=== PATIENT | male | born 1945 | race African-American/Black ===

== ENCOUNTER → 2016-12-28 | Outpatient (CLI) | payer MEDICARE, OTHER ==
[~2016-12-28] VITALS: Ht 180.3 cm; Wt 124.3 kg
[~2016-12-28] MED LIST: ACTOS45 MG PO; AMLODIPINE BESY10 MG; AMLODIPINE BESY10 MG ORAL; ASPIR 8181 MG ORAL; ASPIRIN EC325 MG; BENAZEPRIL HCL40 MG; CATAPRES0.1 MG ORAL; CRESTOR10 M2 ORAL; DOCUSATE SODIU100 MG; ELIQUIS5 MG PO; FREESTYLE LITE1 EACH; FUROSEMIDE20 M1; FUROSEMIDE40 MG ORAL; GLYBURIDE5 MG; HYDROCODON-ACE1 EA15; JANUVIA100 MG ORAL; LANCETS THIN1 EACH; LEXAPRO10 MG ORAL; LOSARTAN POTASS25 MG ORAL; METFORMIN HCL1000 M1; METFORMIN HCL500 M1 ORAL; METOPROLOL TART50 MG; OMEPRAZOLE20 M2 ORAL; PACERONE200 MG ORAL; PIOGLITAZONE; SIMVASTATIN40 MG; TRAMADOL HCL50 MG; UNOBMED; ZOLPIDEM TARTRA10 MG
[2016-12-28 16:07] VITALS: BP 154/58
--- NOTE | 2016-12-28 16:33 | GI Initial Consult Note ---
History of Present Illness General Date patient seen: Dec 28, 2016 Time patient seen: 16:23 Referring physician: Glendy MOORE / GABRIELLE ROWAN Reason for Consultation: CONSTIPATION Present Illness HPI 71 year old male patient referred by Dr. Moore for evaluation of severe constipation and rectal dysfunction. Denies any weight loss. No changes in dietary habits. Last EGD/colonoscopy in 2012, see report below. DATE OF PROCEDURE: 03/20/2013 SURGEON: OTONIEL NASSAR MD PRE-ENDOSCOPY DIAGNOSIS: Anemia. POST-ENDOSCOPY DIAGNOSES: 1. Large gastric ulcer as described below. 2. Normal colonoscopy. Home Meds Reported Medications Amlodipine Besylate* (AMLODIPINE BESYLATE*) 10 Mg Tablet, 10 MG ORAL DAILY, TAB 12/28/16 Clonidine Hcl* (CATAPRES*) 0.1 Mg Tablet, 0.1 MG ORAL Q4HR, TAB 12/28/16 Amiodarone Hcl* (PACERONE*) 200 Mg Tablet, 200 MG ORAL EVERY 12 HOURS, TAB 12/28/16 Apixaban (ELIQUIS) 5 Mg Tablet, 5 MG PO DAILY, TAB 12/28/16 Escitalopram Oxalate* (LEXAPRO*) 10 Mg Tablet, 10 MG ORAL DAILY, TAB 12/28/16 Rosuvastatin Calcium* (CRESTOR*) 10 Mg Tablet, 10 MG ORAL DAILY, TAB 12/28/16 Sitagliptin (Januvia) 100 Mg Tablet, 100 MG ORAL DAILY, TAB 12/28/16 Omeprazole (OMEPRAZOLE) 20 Mg Capsule.dr, 20 MG ORAL DAILY, CAP 12/28/16 Losartan Potassium* (LOSARTAN POTASSIUM*) 25 Mg Tablet, 25 MG ORAL DAILY, TAB 12/28/16 Metformin Hcl* (METFORMIN HCL*) 500 Mg Tablet, 500 MG ORAL TWICE A DAY, TAB 12/28/16 Furosemide* (LASIX*) 40 Mg Tablet, 40 MG ORAL DAILY, TAB 12/28/16 Amlodipine Besylate* (AMLODIPINE BESYLATE*) 10 Mg Tablet, #30 03/18/13 Blood Sugar Diagnostic (FREESTYLE LITE STRIPS) 1 Each Strip, #100 03/18/13 Lancets (LANCETS THIN) 1 Each Each, #200 03/18/13 Discontinued Reported Medications Metoprolol Tartrate* (METOPROLOL TARTRATE*) 50 Mg Tablet, #60 03/18/13 Zolpidem Tartrate* (ZOLPIDEM TARTRATE*) 10 Mg Tablet, #30 03/18/13 Metformin Hcl* (METFORMIN HCL*) 1,000 Mg Tablet, #60 03/18/13 Benazepril Hcl* (BENAZEPRIL HCL*) 40 Mg Tablet, #30 03/18/13 Furosemide* (LASIX*) 20 Mg Tablet, #30 03/18/13 Aspirin* (ASPIRIN EC*) 325 Mg Tablet.dr, #90 03/18/13 Glyburide (GLYBURIDE) 5 Mg Tablet, #60 03/18/13 Tramadol Hcl* (ULTRAM*) 50 Mg Tablet, #80 03/18/13 Simvastatin (ZOCOR) 40 Mg Tablet, #30 03/18/13 Hydrocodone/Acetaminophen 5-325* (HYDROCODONE/ACETAMINOPHEN 5-325*) 1 Each Tablet, #30 03/18/13 Pioglitazone Hcl* (ACTOS*) 45 Mg Tablet, 45 MG PO DAILY, #30 03/18/13 Docusate Sodium* (DOCUSATE SODIUM*) 100 Mg Capsule, #30 03/18/13 [Pioglitazone] No Conflict Check, #30 03/18/13 Med list reviewed/reconciled: Yes Allergies: Coded Allergies: No Known Allergies (Unverified , 03/18/13) Patient History History Provided By: Patient PMH Narrative DM HTN Hemorrhoids depression Past Surgical History: none Pertinent Family History: none Social History: Denies: alcohol use, drug use, other, smoking Review of Systems All Other Systems: negative except mentioned in HPI Physical Exam Vital Signs Date Time Temp Pulse Resp B/P Pulse Ox O2 Delivery O2 Flow Rate FiO2 12/28/16 16:07 98.2 80 16 154/58 98 Sp02 EP Interpretation: reviewed General Appearance: well appearing, no apparent distress, alert, obese Head: normocephalic EENT: PERRL/EOMI, normal ENT inspection Neck: full range of motion, thyroid normal Respiratory: normal breath sounds, no respiratory distress Cardiovascular: normal rate Gastrointestinal: normal inspection, non tender, soft Rectal: normal exam, normal rectal tone Musculoskeletal: normal inspection, back normal, digits/nails normal Neurologic: normal inspection, alert, oriented x3, responsive Psychiatric: normal inspection, judgement/insight normal Skin: normal inspection, normal color, no rash, warm/dry, palpation normal Lymphatic: normal inspection, no adenopathy GI: Plan Problems: (1) Constipation (2) Colonoscopy planned Plan EGD/ Colonoscopy DATE OF PROCEDURE: 03/20/2013 1. Large gastric ulcer as described below. 2. Normal colonoscopy. constipation associated with rectal dysfunction colonoscopy scheduled for 01/13/17. - [facility] & [employer] prep instructions given and acknowledged by patient. - pt instructed to stop Eliquis x 2 days prior procedure date. Seen with Dr. Shepard. Thank you for referring this patient. Patricia Michaud N.P. Dec 28, 2016 16:33
== END | disposition home or self-care (01) ==
LOC: PAN 14:23
DX: K59.00 Constipation, unspecified (principal); K59.9 Functional intestinal disorder, unspecified; Z79.82 Long term (current) use of aspirin; I10 Essential (primary) hypertension; E11.9 Type 2 diabetes mellitus without complications
CPT/HCPCS: 99201

== ENCOUNTER 2017-01-13 10:01 | Day surgery (SDC) | payer MEDICARE, OTHER ==
[~2017-01-13] VITALS: Ht 180.3 cm; Wt 125.2 kg
[2017-01-13] VITALS (8 sets, daily range): BP systolic 121–160; BP diastolic 54–70
--- NOTE | 2017-01-13 06:42 | Anethesia Preoperative Eval ---
Anesthesia Pre-op PMH/ROS General Date of Evaluation: Jan 13, 2017 Time of Evaluation: 06:40 Anesthesiologist: caroline ASA Score: ASA 3 Mallampati Score Class I : Soft palate, uvula, fauces, pillars visible Class II: Soft palate, uvula, fauces visible Class III: Soft palate, base of uvula visible Class IV: Only hard plate visible Mallampati Classification: Class II Surgeon: mitzi Diagnosis: colon screening, gi bleed Surgical Procedure: colonoscopy Social History: smoking - nonsmoker Family History: no anesthesia problems Allergies: Coded Allergies: No Known Allergies (Unverified , 03/18/13) Medications: see eMAR Past Medical History Cardiovascular: Reports: HTN, arrhythmia Gastrointestinal/Genitourinary: Reports: other - gi bleed Neurologic/Psychiatric: Reports: depression/anxiety Endocrine: Reports: DM Hematology/Immune: Reports: anemia, bleeding disorder - anticoagulant therapy Other: obesity Anesthesia Pre-op Phys. Exam Physician Exam Constitutional: NAD Neurologic: CN 2-12 intact Cardiovascular: RRR Respiratory: CTA Gastrointestinal: S/NT/ND Airway Exam Mallampati Score: Class II MO: full Neck: supple TMD: 2fb ROM: full Teeth: intact Anesthesia Pre-op A/P Studies Pre-op Studies: EKG Risk Assessment & Plan Assessment: asa3 Plan: mac Status Change Before Surgery: No Pre-Antibiotics Drug: ESTUARDO Zacarias Jan 13, 2017 06:42
[2017-01-13] MEDS ORDERED: Lidocaine 1% MPF 10mg/ml 5ml ONE (10:45)
[2017-01-13] MEDS ORDERED: Propofol 10mg/ml 20ml IV ONE (10:45)
--- NOTE | 2017-01-13 10:50 | Pre-Procedure Note/Attestation ---
Pre-Procedure Note/Attestation Complete Prior to Procedure Planned Procedure: not applicable Procedure Narrative: colonoscopy Indications for Procedure Pre-Operative Diagnosis: screening colon Attestation I attest that I discussed the nature of the procedure; its benefits; risks and complications; and alternatives (and the risks and benefits of such alternatives ), prior to the procedure, with the patient (or the patient's legal vendor representatives). I attest that, if there was a reasonable possibility of needing a blood transfusion, the patient (or the patient's legal vendor representatives) was given the [facility] standardized written summary, pursuant to the Elias Jesse Blood Safety Act ([place] Health and Safety Code # 1645, as amended). I attest that I re-evaluated the patient just prior to the surgery and that there has been no change in the patient's H&P, except as documented below: BECKI WOLF Jan 13, 2017 10:50
--- NOTE | 2017-01-13 10:50 | Short Stay Surgery H&P ---
History of Present Illness History of Present Illness Chief Complaint see recent consult note HPI Franny Fitch is a 71 year old male who was admitted on for Colon Screening Patient History Allergies: Coded Allergies: No Known Allergies (Unverified , 03/18/13) PAST MEDICAL HISTORY: Past Surgeries: Social History: Medication History Scheduled Amiodarone Hcl* (Pacerone*), 200 MG ORAL EVERY 12 HOURS, (Reported) Amlodipine Besylate* (Amlodipine Besylate*), 10 MG ORAL DAILY, (Reported) Apixaban (Eliquis), 5 MG PO DAILY, (Reported) Clonidine Hcl* (Catapres*), 0.1 MG ORAL Q4HR, (Reported) Escitalopram Oxalate* (Lexapro*), 10 MG ORAL DAILY, (Reported) Furosemide* (Lasix*), 40 MG ORAL DAILY, (Reported) Losartan Potassium* (Losartan Potassium*), 25 MG ORAL DAILY, (Reported) Metformin Hcl* (Metformin Hcl*), 500 MG ORAL TWICE A DAY, (Reported) Omeprazole (Omeprazole), 20 MG ORAL DAILY, (Reported) Rosuvastatin Calcium* (Crestor*), 10 MG ORAL DAILY, (Reported) Sitagliptin (Januvia), 100 MG ORAL DAILY, (Reported) Miscellaneous Medications Amlodipine Besylate* (Amlodipine Besylate*), (Reported) Durable Medical Equipment Blood Sugar Diagnostic (Freestyle Lite Strips), (Reported), (DME) Lancets (Lancets Thin), (Reported), (DME) Plan Attestation Are the patient's medical conditions optimized for surgery? BECKI WOLF Jan 13, 2017 10:50
[2017-01-13 11:23] LABS: EOSINOPHILS % (AUTO) 3.2 % (0.0-3.0); LYMPHOCYTES % (AUTO) 32.1 % (20.0-45.0); MEAN CORPUSCULAR HEMOGLOBIN 26.7 PG (27.0-31.0); MEAN CORPUSCULAR HGB CONC 31.7 G/DL (32.0-36.0); MEAN CORPUSCULAR VOLUME 84 FL (80-99); MEAN PLATELET VOLUME 9.6 FL (6.5-10.1); NEUTROPHILS % (AUTO) 56.7 % (45.0-75.0); PLATELET COUNT 168 K/UL (150-450); RED BLOOD COUNT 4.37 M/UL (4.70-6.10); RED CELL DISTRIBUTION WIDTH 11.7 % (11.6-14.8); WHITE BLOOD COUNT 4.6 K/UL (4.8-10.8)
--- NOTE | 2017-01-13 11:30 | Endoscopy Procedure Note ---
Endoscopy Procedure Note Indication for Procedure: screening Procedures Performed: colonoscopy Operative Findings/Diagnosis: hemorrhoids Specimen: none Pt Tolerated Procedure Well: Yes Estimated Blood Loss: none Anesthesiologist: caroline Anesthesia: MAC Implant(s) used?: No 50 yrs or older w/o bx or poly: Yes 10yrs. F/U not recommended: Yes If not recommended, why?: Above average risk 10 yrs. F/U needed: Yes 18 years or older w/prev. colo: No BECKI WOLF Jan 13, 2017 11:30
[2017-01-13 11:36] LABS: ANION GAP 11 (5-15); CALCIUM 11.6 mg/dL (8.6-10.2); CARBON DIOXIDE 26 mEQ/L (20-30); CHLORIDE 105 mEQ/L (98-107); CREATININE 1.4 mg/dL (0.7-1.2); HEMOLYSIS 10; SODIUM 142 mEQ/L (135-145)
--- NOTE | 2017-01-13 11:55 | Immediate Post-Op Evaluation ---
Immediate Post-Op Evalulation Immediate Post-Op Evalulation Procedure: colonoscopy Date of Evaluation: Jan 13, 2017 Time of Evaluation: 11:50 IV Fluids: 0.9ns 200ml Blood Products: none Estimated Blood Loss: negligible Blood Pressure Systolic: 143 Blood Pressure Diastolic: 70 Pulse Rate: 53 Respiratory Rate: 18 O2 Sat by Pulse Oximetry: 97 Temperature (Fahrenheit): 98.5 Pain Score (1-10): 0 Nausea: No Vomiting: No Complications none Patient Status: awake, reacts, patent Hydration Status: adequate Drug: SETUARDO Zacarias Jan 13, 2017 11:55
--- NOTE | 2017-01-13 11:57 | 48 Hour Post Anesthesia Eval ---
Post Anesthesia Evaluation Procedure: colonoscopy Date of Evaluation: Jan 13, 2017 Time of Evaluation: 11:56 Blood Pressure Systolic: 143 0: 70 Pulse Rate: 54 Respiratory Rate: 18 Temperature (Fahrenheit): 98.5 O2 Sat by Pulse Oximetry: 98 Airway: patent Nausea: No Vomiting: No Pain Intensity: 0 Cardiopulmonary Status: stable Mental Status/LOC: patient returned to baseline Post-Anesthesia Complications: none Follow-up care needed: N/A ESTUARDO MORSE Jan 13, 2017 11:57
[2017-01-13] MEDS ORDERED: DiphenhydrAMINE 50mg/ml Inj IVP PRN (12:00)
[2017-01-13] MEDS ORDERED: Atropine Inj 1mg/10ml Syr IV PRN (12:00)
[2017-01-13] MEDS ORDERED: Hydromorphone 0.5mg/0.5ml inj IVP PRN (12:00)
[2017-01-13] MEDS ORDERED: Midazolam 2mg/2ml Inj IVP PRN (12:00)
--- NOTE | 2017-01-13 16:15 | Procedure Note ---
DATE OF PROCEDURE: 01/13/2017 PROCEDURE: Colonoscopy. SURGEON: Trung Shepard M.D. ANESTHESIOLOGIST: Farida Obrien M.D. INSTRUMENT: Olympus adult flexible colonoscope. INDICATION: Screening colonoscopy. REASON FOR PROCEDURE: The procedure, risks, benefits, and possible consequences, including hemorrhage, aspiration, perforation and infection, and alternative treatments, were explained to the patient/legal guardian by Dr. Trung Shepard and the patient/legal guardian understood and accepted these risks. PROCEDURE: After informed consent was obtained and the patient was adequately sedated, first rectal exam was performed, which shows normal. Then, the scope was advanced from rectum into the cecum, documented by appendiceal orifice, ileocecal valve, and upper quadrant palpation. Quality of prep was good except for the cecum, which was covered with solid stool, so examination of the cecum was somewhat limited. The patient had a normal colonoscopy examination. No lymph node, mass, polyp, or any pathology was seen. Retroflexion of rectum showed evidence of internal hemorrhoids. SUMMARY OF FINDINGS: 1. Normal colonoscopy examination. Although, we had a limited examination of the cecum given the prep in the cecum. 2. Internal hemorrhoids. RECOMMENDATIONS: Repeat colonoscopy in five years. Trung Shepard M.D. DR: DOMINGUEZ JOB#: [id number] CC:
--- NOTE | 2017-01-15 00:53 | Cardiology Report ---
APPROVED REPORT EKG Measurement Heart [id number] OR [id number] Sinus bradycardia with 1st degree AV block with premature atrial complexes Otherwise normal ECG
== END 2017-01-13 15:35 | disposition home or self-care (01) ==
LOC: GAS 10:01
DX: Z12.11 Encounter for screening for malignant neoplasm of colon (principal); K64.8 Other hemorrhoids; F32.9 Major depressive disorder, single episode, unspecified; F41.9 Anxiety disorder, unspecified; E11.9 Type 2 diabetes mellitus without complications; I10 Essential (primary) hypertension; Z79.84 Long term (current) use of oral hypoglycemic drugs; D64.9 Anemia, unspecified; I49.9 Cardiac arrhythmia, unspecified; Z79.01 Long term (current) use of anticoagulants
CPT/HCPCS: 36415; 80048; 82962; 85025; 93005; G0121; J2704; 94003; 94150

== ENCOUNTER 2017-03-08 08:53 | Outpatient (CLI) | payer MEDICARE, OTHER ==
[2017-03-08 09:27] LABS: APPEARANCE,URINE CLEAR; BASOPHILS % (AUTO) 0.8 % (0.0-2.0); EOSINOPHILS % (AUTO) 2.3 % (0.0-3.0); KETONES,URINE NEGATIVE (NEGATIVE); LEUKOCYTE ESTERASE ,URINE 1+ (NEGATIVE); LYMPHOCYTES % (AUTO) 28.5 % (20.0-45.0); MEAN CORPUSCULAR HEMOGLOBIN 26.6 PG (27.0-31.0); MEAN CORPUSCULAR HGB CONC 31.4 G/DL (32.0-36.0); MEAN CORPUSCULAR VOLUME 85 FL (80-99); MEAN PLATELET VOLUME 7.9 FL (6.5-10.1); MONOCYTES % (AUTO) 7.2 % (1.0-10.0); NEUTROPHILS % (AUTO) 61.3 % (45.0-75.0); NITRITE,URINE NEGATIVE (NEGATIVE); PH,URINE 6 (4.5-8.0); PLATELET COUNT 210 K/UL (150-450); PROTEIN,URINE 3+ (NEGATIVE); RED BLOOD COUNT 4.86 M/UL (4.70-6.10); RED CELL DISTRIBUTION WIDTH 12.8 % (11.6-14.8); UROBILINOGEN,URINE 1 MG/DL (0.0-1.0); WHITE BLOOD COUNT 5.7 K/UL (4.8-10.8)
[2017-03-08 09:36] LABS: SQUAMOUS EPITHELIAL CELL,UR OCCASIONAL /LPF (NONE/OCC)
[2017-03-08 09:37] LABS: BACTERIA,URINE OCCASIONAL /HPF
[2017-03-08 11:19] LABS: CHOLESTEROL 144 MG/DL (< 200); CHOLESTEROL/HDL RATIO 2.8 (3.3-4.4); LDL CHOLESTEROL CALC 78 mg/dL (< 100); POTASSIUM 4.7 MMOL/L (3.5-5.1); SODIUM 135 MMOL/L (136-145)
[2017-03-08 11:44] LABS: ALANINE AMINOTRANSFERASE 27 U/L (12-78); ALBUMIN/GLOBULIN RATIO 0.7 (1.0-2.7); ANION GAP 12 (5-15); ASPARTATE AMINO TRANSFERASE 18 U/L (15-37); CALCIUM 9.5 MG/DL (8.5-10.1); CARBON DIOXIDE 24 MMOL/L (21-32); CHLORIDE 99 MMOL/L (98-107); CREATININE 1.9 MG/DL (0.55-1.30); PSA TOTAL 0.3 ng/mL (0.0-4.0)
[2017-03-08 12:40] LABS: HEMOGLOBIN A1C 9.4 % (4.5-6.2)
[2017-03-09 13:24] LABS: CALCIUM 9.8 mg/dL (8.6-10.2); PTH INTACT 54 pg/mL (15-65)
== END 2017-03-08 10:53 | disposition home or self-care (01) ==
LOC: LAB 08:53
DX: N18.3 Chronic kidney disease, stage 3 (moderate) (principal)
CPT/HCPCS: 36415; 80053; 80061; 81003; 83036; 83970; 84153; 85025

== ENCOUNTER 2017-03-16 09:14 | Outpatient (CLI) | payer MEDICARE, OTHER ==
--- NOTE | 2017-03-16 09:49 | GI Progress Note ---
Assessment/Plan Problems: (1) Constipation ICD Codes: K59.00 - Constipation, unspecified SNOMED: [id number] Status: stable Status Narrative Seen with Dr. Shepard. Assessment/Plan s/p colonoscopy SUMMARY OF FINDINGS reviewed with patient: 1. Normal colonoscopy examination. Although, we had a limited examination of the cecum given the prep in the cecum. 2. Internal hemorrhoids. RECOMMENDATIONS: Trial of Miralax RTC x 2 weeks Repeat colonoscopy in five years. The patient was seen and examined at bedside and all new and available data was reviewed in the patients chart. I agree with the above findings, impression and plan. (Patient seen earlier today. Signature stamp does not reflect patient encounter time.). - Laura Shepard MD Subjective Subjective constipated, but has soft stools has to bear down to defecate Objective T 97.8 BP 167/70 P 67 95 RA General Appearance: no apparent distress, alert Cardiovascular: normal rate Respiratory/Chest: normal breath sounds, no respiratory distress Abdominal Exam: normal bowel sounds, non tender, soft Extremities: normal range of motion Patricia Michaud N.P. Mar 16, 2017 09:49 BECKI SHEPARD Mar 19, 2017 09:16
[2017-03-16 13:43] VITALS: BP 167/70
== END 2017-03-16 10:00 | disposition home or self-care (01) ==
LOC: PAN 09:14
DX: K59.00 Constipation, unspecified (principal); K64.8 Other hemorrhoids
CPT/HCPCS: 99211

== ENCOUNTER → 2018-03-07 | Outpatient (CLI) | payer MEDICARE, OTHER ==
[2018-03-07 12:05] LABS: EOSINOPHILS % (AUTO) 4.5 % (0.0-3.0); HEMATOCRIT 38.3 % (42.0-52.0); HEMOGLOBIN 12.2 G/DL (14.2-18.0); LYMPHOCYTES % (AUTO) 32.6 % (20.0-45.0); MEAN CORPUSCULAR VOLUME 85 FL (80-99); MONOCYTES % (AUTO) 7.5 % (1.0-10.0); NEUTROPHILS % (AUTO) 54.4 % (45.0-75.0); PLATELET COUNT 161 K/UL (150-450); RED BLOOD COUNT 4.49 M/UL (4.70-6.10); RED CELL DISTRIBUTION WIDTH 12.3 % (11.6-14.8); WHITE BLOOD COUNT 4.8 K/UL (4.8-10.8)
[2018-03-07 12:37] LABS: CHOLESTEROL 123 MG/DL (< 200); HDL CHOLESTEROL 44 MG/DL (40-60); TRIGLYCERIDES 72 MG/DL (30-150)
[2018-03-07 12:55] LABS: APPEARANCE,URINE CLEAR; BILIRUBIN, URINE NEGATIVE (NEGATIVE); COLOR,URINE PALE YELLOW; GLUCOSE, URINE (UA) NEGATIVE (NEGATIVE); KETONES,URINE NEGATIVE (NEGATIVE); LEUKOCYTE ESTERASE ,URINE NEGATIVE (NEGATIVE); NITRITE,URINE NEGATIVE (NEGATIVE); PH,URINE 5 (4.5-8.0); PROTEIN,URINE 2+ (NEGATIVE); UROBILINOGEN,URINE NORMAL MG/DL (0.0-1.0)
== END | disposition home or self-care (01) ==
LOC: LAB 11:16
DX: I12.9 Hypertensive chronic kidney disease with stage 1 through stage 4 chronic kidney disease, or unspecified chronic kidney disease (principal); N18.9 Chronic kidney disease, unspecified
CPT/HCPCS: 36415; 80061; 81001; 82306; 83036; 83970; 84100; 85025